=== PATIENT | female | born 1930 | race Caucasian/White ===

== ENCOUNTER 2017-07-16 07:05 | Day surgery (SDC) | payer MEDICARE, BC ==
[~2017-07-16 07:05] MED LIST: Lactated Ringers 1,000 ML IV SCH; Sodium Chloride 0.9% 5 ML Syringe FLUSH PRN
[2017-07-16] MEDS ORDERED: EPINEPHrine 1:10,000 1 MG/10 ML Syringe ONE (07:34)
[2017-07-16] MEDS ORDERED: fentaNYL 100 MCG/2 ML SDV ONE (07:55)
[2017-07-16] MEDS ORDERED: Propofol 200 MG/20 ML SDV ONE (07:55)
[2017-07-16] MEDS ORDERED: Propofol 200 MG/20 ML SDV IV ONE (08:29)
[2017-07-16] MEDS ORDERED: fentaNYL 100 MCG/2 ML SDV IV ONE (08:29)
--- NOTE | 2017-07-16 08:55 | PCM.OPNOTE ---
- General Post-Op/Procedure Note Date of Surgery/Procedure: 07/16/17 Operative Procedure(s): colonoscopy Findings: Normal colonoscopy Condition: Good Free Text/Narrative:: INFORMED CONSENT: Patient is here today for elective colonoscopy. All aspects of this procedure have been discussed with the patient. All possible complications also, including possibility of perforation, infection, pain, bleeding and unknown complications. In the event of perforation patient may need to have abdominal exploration, colon resection, colostomy and even was discussed. Anesthetic complications were handled by anesthesia department. The patient understands fully well. Patient did not have any further questions for me at the end of my interview. The patient wishes for me to proceed. PREOPERATIVE DIAGNOSIS/INDICATIONS: [Chronic diarrhea] POSTOPERATIVE DIAGNOSIS: [Normal colonoscopy possible irritable bowel syndrome] INSTRUMENT USED: Olympus videocolonoscope. ASA CLASSIFICATION: [] ANESTHESIA: Continuous EKG, oximetry and intermittent blood pressure and respiratory monitoring were performed throughout the procedure. IV Versed and Fentanyl were administered. PROCEDURE PERFORMED: Colonoscopy POSITIONS OF PATIENT: Left lateral. RECTUM: Normal. SIGMOID COLON: Normal except for a few diverticuli. DESCENDING COLON: Normal. SPLENIC FLEXURE: Normal. TRANSVERSE COLON: Normal. HEPATIC FLEXURE: Normal. ASCENDING COLON: Normal. CECUM: Normal. ILEOCECAL VALVE: Normal. BIOPSY: None. TOLERANCE: Excellent. COMPLICATIONS: None. Few diverticula in the sigmoid colon otherwise negative colonoscopy. Findings suggest irritable bowel syndrome.
[2017-07-16 13:52] VITALS: BP 142/76
== END 2017-07-16 10:25 | disposition home or self-care (01) ==
LOC: KA.SDS 07:05
PROVIDERS: ATTEND Family Medicine
DX: K57.30 Diverticulosis of large intestine without perforation or abscess without bleeding (principal); I10 Essential (primary) hypertension; E87.1 Hypo-osmolality and hyponatremia; E87.6 Hypokalemia; Z79.82 Long term (current) use of aspirin; Z79.899 Other long term (current) drug therapy; Z88.2 Allergy status to sulfonamides; Z90.710 Acquired absence of both cervix and uterus; Z98.890 Other specified postprocedural states; Z96.642 Presence of left artificial hip joint
CPT/HCPCS: 45378; J2704; J3010; J7120; 00810

== ENCOUNTER 2018-01-01 13:30 | Day surgery (SDC) | payer MEDICARE, BC ==
[~2018-01-01 13:30] MED LIST changes: +Gatifloxacin 0.5% Ophth Soln 2.5 ML Bot EYERT SCH
[2018-01-01] MEDS: Cyclopentolate 1% Opth Soln 2 ML Bottle EYERT SCH ×3 (14:03→14:35)
[2018-01-01] MEDS: Phenylephrine 10% Ophth Soln 5 ML Bot EYERT SCH ×3 (14:14→14:45)
[2018-01-01] MEDS ORDERED: Water For Irrigation,Sterile 1,500 ML Container IRR ONE (15:14)
[2018-01-01] MEDS ORDERED: Balanced Salt Solution Ophth Irrig 15 ML Bottle EYERT ONE (15:14)
[2018-01-01] MEDS ORDERED: Balanced Salt Solution Plus Ophth Irrig 500 ML Bottle IOCULAR ONE (15:17)
[2018-01-01] MEDS ORDERED: Carbachol 0.01% Intraocular 1.5 ML Vial EYERT ONE (15:17)
[2018-01-01] MEDS ORDERED: EPINEPHrine 1 MG/ML SDV ONE (15:18)
[2018-01-01] MEDS ORDERED: Lidocaine 1% 10 ML MDV INJECT ONE (15:18)
[2018-01-01] MEDS ORDERED: Dexamethasone/Neomycin/Polymyxin B Ophth Oint 3.5 GM Tube EYERT ONE (15:18)
[2018-01-01] MEDS ORDERED: Lidocaine 2% with EPINEPHrine 1:100,000 20 ML MDV INJECT ONE (15:18)
[2018-01-01] MEDS ORDERED: Hyaluronate Sodium 1% 0.85 ML Syringe IOCULAR ONE ×2 (15:19)
[2018-01-01] MEDS ORDERED: Tetracaine HCl/PF 0.5% 4 ML Bottle EYEBOTH ONE (15:19)
[2018-01-01 15:52] VITALS: BP 156/84
--- NOTE | 2018-01-02 09:29 | OR ---
DATE OF SURGERY: 01/01/2018 SURGEON: Evgeny Albarado MD PREOPERATIVE DIAGNOSIS: Cataract, right eye POSTOPERATIVE DIANOSIS: Cataract, right eye HISTORY: This patient presents with an increasing amount of blurred vision for the right eye such that she is having difficulty seeing TV print. Vision for the right eye is 20/50 -1. The right lens has a strong 3+ nuclear sclerosis, a 3+ cortical change, and a 2+ to 3+ posterior subcapsular change. 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 OPERATIVE PROCEDURE: The patient was taken the operating room, where appropriate anesthesia, sedation, and monitoring were provided. A retrobulbar block was given on the right side. The eye was massaged and was found to be appropriately soft. The eye and eyelids were then prepped and draped in the usual sterile manner. A lid speculum was placed. A Micro-Sharp blade was used to enter the anterior chamber superior temporally and through this site, Xylocaine and then Healon were irrigated in the eye. Then, using a 2.85 mm angle blade, an incision was made at the limbus temporally. Healon was irrigated in the eye and then using a cystotome, the anterior capsulorrhexis was created. The lens nucleus was hydrodissected using a 27-gauge cannula and balanced salt solution. The phacoemulsification unit was introduced through the temporal site and the Bryant spatula through the superior temporal site and the anterior aspect of the lens nucleus was phacoemulsified. The pupil became smaller during this process, and therefore, Healon was irrigated into the eye and a Malyugin ring of 6.25 mm size was placed to keep the pupil dilated. The remainder of the lens nucleus, which was markedly dense, was successfully removed using the phacoemulsification unit. The cortical fragments of the lens were removed using the irrigation aspiration unit. Healon was irrigated in the eye and the posterior capsule was polished. Then, the posterior chamber lens was inserted. It was rotated into position inside the capsular bag. The Malyugin ring was removed. The Healon was irrigated out of the eye. Miostat was irrigated into the eye and the pupil rounded nicely. Three interrupted 10-0 nylon sutures were placed through the temporal corneal incision site. Balanced salt solution was irrigated into the eye. The wound was tested. It was found to be appropriately tight. Maxitrol ointment was placed in the patient's eye. The eyelids were closed and an eye patch and a Carty shield were placed. The patient left the operating room in good condition. /[id number]/MODL
== END 2018-01-01 16:13 | disposition home or self-care (01) ==
LOC: KA.SDS 13:30
PROVIDERS: ATTEND Ophthalmology
DX: H25.811 Combined forms of age-related cataract, right eye (principal); I10 Essential (primary) hypertension; M19.90 Unspecified osteoarthritis, unspecified site; E87.6 Hypokalemia; Z88.2 Allergy status to sulfonamides; Z79.82 Long term (current) use of aspirin; Z79.899 Other long term (current) drug therapy
CPT/HCPCS: A9270-GY; J0171; J7120

== ENCOUNTER 2019-08-16 10:09 | Emergency (ER) | payer MEDICARE, BC ==
[2019-08-16 10:32] VITALS: BP 156/90; PULSE 77
[2019-08-16] MEDS ORDERED: Acetaminophen/oxyCODONE 325-5 MG Tab PO ONE (10:55)
--- NOTE | 2019-08-16 11:11 | EDM.PDOC ---
ED HPI GENERAL MEDICAL PROBLEM - General Chief Complaint: General Stated Complaint: S/P FALL, LEFT RIB PAIN Time Seen by Provider: 08/16/19 10:43 Source of Information: Reports: Patient History Limitations: Reports: No Limitations - History of Present Illness INITIAL COMMENTS - FREE TEXT/NARRATIVE: Patient is an 88-year-old female who presents to the emergency department this morning via private vehicle secondary to a complaint of left rib pain. Patient states approximately 1900 last evening, while at home, she tripped and fell from a standing position. She landed on a humidifier striking the left axilla region. Patient states that the pain wasn't too bad last night, however, when she woke this morning it was worse. Pain is worse with deep breaths. Patient does have a history of balance issues, however denies head injury, syncopal or near syncopal episode, neck pain, abdominal pain, nausea, vomiting, dizziness, or central chest pain. Onset: Sudden Onset Date: 08/15/19 Onset Time: 19:00 Duration: Hour(s): Location: Reports: Chest, Back Quality: Reports: Ache, Stabbing Severity: Moderate Improves with: Reports: None Worsens with: Reports: Movement Associated Symptoms: Reports: No Other Symptoms. Denies: Chest Pain, Cough, Nausea/Vomiting Left Lower Posterior Thoracic Pain Score (Numeric/FACES): 9 - Related Data Allergies Allergy/AdvReac Type Severity Reaction Status Date / Time Sulfa (Sulfonamide Allergy Hives Verified 08/16/19 10:32 Antibiotics) Home Meds: Home Meds Ascorbic Acid [Vitamin C] 1,000 mg PO DAILY 05/30/14 [History] Calcium Carbonate/Vitamin D3 [Calcium 600 + Vit D 400] 2 tab PO BID 05/30/14 [ History] Cholecalciferol (Vitamin D3) [Vitamin D3] 1,000 units PO ASDIRECTED 05/30/14 [ History] Cranberry Ext/C/L. Sporogenes [Azo Cranberry] 1 tab PO DAILY 05/30/14 [History] Loratadine [Claritin] 10 mg PO BEDTIME 05/30/14 [History] Celecoxib 200 mg PO DAILY 05/02/17 [History] Glucosam/Chondr/Collagn/Hyalur [Glucosamine & Chondroitin Cap] 1 each PO BID [History] Potassium Gluconate 20 mg PO DAILY 05/02/17 [History] Rup Rub 1 applic TOP BID 07/13/17 [History] Losartan Potassium 100 mg PO BEDTIME 08/16/19 [History] Sodium Chloride 1 gm PO TID 08/16/19 [History] Vit A/Vit C/Vit E/Zinc/Copper [Preservision] 1 tab PO BID 08/16/19 [History] Past Medical History HEENT History: Reports: Cataract, Impaired Vision Cardiovascular History: Reports: Hypertension Respiratory History: Reports: Pneumonia, Recurrent Gastrointestinal History: Reports: Chronic Diarrhea Genitourinary History: Reports: None [employer]AIR History: Reports: Musculoskeletal History: Reports: Arthritis - Infectious Disease History Infectious Disease History: Reports: Chicken Pox, Measles, Shingles - Past Surgical History HEENT Surgical History: Reports: Cataract Surgery, Tonsillectomy Cardiovascular Surgical History: Reports: None Respiratory Surgical History: Reports: None GI Surgical History: Reports: Colonoscopy Female Surgical History: Reports: Hysterectomy Musculoskeletal Surgical History: Reports: Hip Replacement Social & Family History - Caffeine Use Caffeine Use: Reports: Coffee ED ROS GENERAL - Review of Systems Review Of Systems: Comprehensive ROS is negative, except as noted in HPI. Constitutional: Reports: No Symptoms HEENT: Reports: No Symptoms Respiratory: Reports: Shortness of Breath, Pleuritic Chest Pain Cardiovascular: Reports: No Symptoms Endocrine: Reports: No Symptoms GI/Abdominal: Reports: No Symptoms : Reports: No Symptoms Musculoskeletal: Reports: No Symptoms Skin: Reports: No Symptoms Neurological: Reports: No Symptoms Psychiatric: Reports: No Symptoms Hematologic/Lymphatic: Reports: No Symptoms Immunologic: Reports: No Symptoms ED EXAM, GENERAL - Physical Exam Exam: See Below Exam Limited By: No Limitations General Appearance: Alert, WD/WN, Mild Distress Eye Exam: Bilateral Eye: Normal Inspection Nose: Normal Inspection, Normal Mucosa, No Blood Throat/Mouth: Normal Inspection, Normal Oropharynx, No Airway Compromise Head: Atraumatic, Normocephalic Neck: Normal Inspection, Supple, Non-Tender, Full Range of Motion Respiratory/Chest: No Respiratory Distress, Lungs Clear, No Accessory Muscle Use , Rales (Bibasilar), Other (Left axilla inferior ribs tender to palpation extending from axilla toward thoracic vertebrae. No flail, ecchymosis, or edema noted). No: Respiratory Distress, Accessory Muscle Use, Retractions, Prolonged Expiration Cardiovascular: Regular Rate, Rhythm, Diastolic Murmur GI/Abdominal: Normal Bowel Sounds, Soft, Non-Tender, No Organomegaly, No Distention, No Abnormal Bruit, No Mass Back Exam: Normal Inspection. No: CVA Tenderness (L), CVA Tenderness (R) Extremities: Normal Inspection, Normal Range of Motion, Non-Tender, No Pedal Edema, Normal Capillary Refill Neurological: Alert, Oriented, Normal Cognition Psychiatric: Normal Affect, Normal Mood Skin Exam: Warm, Dry, Intact, Normal Color, No Rash Course - Vital Signs Last Recorded V/S: Last Vital Signs Temp 98.0 F 08/16/19 10:27 Pulse 77 08/16/19 10:27 Resp 20 08/16/19 10:27 BP 156/90 H 08/16/19 10:27 Pulse Ox 96 08/16/19 10:27 - Orders/Labs/Meds Meds: Medications Discontinued Medications Generic Name Dose Route Start Last Admin Trade Name Freq PRN Reason Stop Dose Admin Oxycodone/Acetaminophen 1 tab 08/16/19 10:55 08/16/19 11:02 Percocet 325-5 Mg PO 08/16/19 10:56 1 tab ONETIME ONE Administration - Radiology Interpretation Free Text/Narrative:: Chest x-ray shows trace bilateral pleural effusions but no obvious fracture. - Re-Assessments/Exams Free Text/Narrative Re-Assessment/Exam: 08/16/19 13:10 Patient afebrile, vital signs stable, son present with her. Discussed with patient to use pillow for splinting when taking deep breath and also was given incentive spirometry. Patient will follow-up at [facility]. Departure - Departure Time of Disposition: 13:12 Disposition: Home, Self-Care 01 Condition: Good Clinical Impression: Contusion of rib on left side Qualifiers: Encounter type: initial encounter Qualified Code(s): S20.212A - Contusion of left front wall of thorax, initial encounter - Discharge Information Instructions: Chest Contusion, Adult, [id number], Rib Contusion, Incentive Spirometer Referrals: Stacy Weiss MD [Primary Care Provider] - Forms: ED Department Discharge Additional Instructions: Follow-up at [facility] in 2-3 days. Return to emergency department sooner symptoms continue or worsen. Use ice and anti-inflammatories for discomfort Sepsis Event Note - Evaluation Sepsis Screening Result: No Definite Risk - Focused Exam Vital Signs: Vital Signs Temp Pulse Resp BP Pulse Ox 08/16/19 10:27 98.0 F 77 20 156/90 H 96 Date Exam was Performed: 08/16/19 Time Exam was Performed: 13:10 - Assessment/Plan Assessment:: Chest contusion Plan: Follow-up with PCP
--- NOTE | 2019-08-16 13:06 | CR ---
[id number] RAD/RAD Ribs Left W PA Chest EXAM: RAD Ribs Left W PA Chest INDICATION: TRAUMA COMPARISON: March 14, 2019 DISCUSSION: Cardiomediastinal silhouette is normal in size and contour. No infiltrate, pneumothorax or edema. Small left and trace right pleural effusions. Pulmonary hyperinflation. IMPRESSION: Small left and trace right pleural effusions. Al Sarah DO 08/16/19 [id number] Thank you for allowing us to participate in the care of your patient.
== END 2019-08-16 13:25 | disposition home or self-care (01) ==
LOC: KA.ED 10:09
DX: S20.212A Contusion of left front wall of thorax, initial encounter (principal); I10 Essential (primary) hypertension; Z88.2 Allergy status to sulfonamides; Z79.899 Other long term (current) drug therapy; W01.198A Fall on same level from slipping, tripping and stumbling with subsequent striking against other object, initial encounter; Y92.009 Unspecified place in unspecified non-institutional (private) residence as the place of occurrence of the external cause
CPT/HCPCS: 71101-LT; 99283-25; A9270-GY